=== PATIENT | male | born 1955 | race Caucasian/White ===

== ENCOUNTER 2019-11-21 12:33 | Outpatient (CLI) | payer MEDICARE, SELFPAY ==
--- NOTE | 2019-11-21 12:40 | ECHO_ITS ---
Patient Info Name: Nicolas Covington Age: 64 years : 1955 Gender: Male Ht: 65 in Wt: 135 lbs BSA: 1.68 m2 HR: 59 bpm BP: 144 / 92 mmHg Technical Quality: Good Exam Date: 11/21/2019 1:26 PM Exam Location: [facility] Patient Status: Outpatient Admit Date: 11/21/2019 Staff Ordering Physician: Vaelrio Jane DO [employer] Math Tutor: Matt Doshi, SUSIE, RT Attending Provider: Valerio Jane DO Referring Physician: Buck RIBEIRO; Exam Type: CA echo dop color flow w con Study Info Indications I50.9 - Heart failure, unspecified Complete two-dimensional, color flow and Doppler transthoracic echocardiogram is performed. Summary 1. Left ventricular systolic function is preserved, estimated at 50-55%. 2. Left ventricular chamber dimension is mildly enlarged. 3. The left ventricular diastolic function is grade I diastolic dysfunction. 4. E/e' 5 is not elevated. 5. Global longitudinal strain is mildly abnormal at -15.8%. 6. Right ventricular systolic function is mildly reduced with TAPSE 1.5 cm. 7. There is mild aortic valve sclerosis. 8. There is trace aortic valve regurgitation. 9. There is trace mitral valve regurgitation. 10. There is mild tricuspid valve regurgitation. 11. Dilated inferior vena cava with <50% collapse upon inspiration consistent with significantly elevated right atrial pressure, 15 mmHg. Left Ventricle E/e' 5 is not elevated. Global longitudinal strain is mildly abnormal at -15.8%. Left ventricular systolic function is preserved, estimated at 50-55%. Left ventricular chamber dimension is mildly enlarged. The left ventricular diastolic function is grade I diastolic dysfunction. Right Ventricle Right ventricular systolic function is mildly reduced with TAPSE 1.5 cm. Right ventricular chamber dimension is normal. Left Atria Left atrial chamber dimension is normal. Right Atria Right atrial chamber dimension is normal. Aortic Valve The aortic valve is trileaflet. There is mild aortic valve sclerosis. There is no aortic valve stenosis. There is trace aortic valve regurgitation. Pulmonic Valve There is no pulmonic regurgitation. Mitral Valve There is no mitral valve stenosis. There is trace mitral valve regurgitation. Tricuspid Valve There is mild tricuspid valve regurgitation. RVSP is not calcuated due to an inadequate TR jet. Pericardium/Pleural There is no pericardial effusion. Inferior Vena Cava Dilated inferior vena cava with <50% collapse upon inspiration consistent with significantly elevated right atrial pressure, 15 mmHg. Aorta The aortic root size at the sinus of Valsalva is normal. Left Ventricular Outflow Tract Name Value Normal LVOT 2D LVOT Diameter 2.02 cm LVOT Doppler LVOT Peak Gradient 3 mmHg LVOT Mean Gradient 1 mmHg LVOT VTI 16.98 cm LVOT VTI/AV VTI Ratio 0.81 LVOT Stroke Volume 54.12 ml LVOT CO 3.82 l/min LVOT CI 2.27 L/min/m2 Chung
== END 2019-11-21 12:34 | disposition home or self-care (01) ==
PROVIDERS: PCP Family Medicine; Visit Provider Internal Medicine Cardiovascular Disease
DX: I25.10 Atherosclerotic heart disease of native coronary artery without angina pectoris (principal); Z95.1 Presence of aortocoronary bypass graft; I36.1 Nonrheumatic tricuspid (valve) insufficiency; I35.1 Nonrheumatic aortic (valve) insufficiency
CPT/HCPCS: C8929

== ENCOUNTER 2021-03-31 11:02 | Outpatient (CLI) | payer OTHER, SELFPAY ==
--- NOTE | ~2021-03-31 | XR_ITS ---
EXAMINATION: XR ankle RT min 3V INDICATION: Right ankle pain TECHNIQUE: Four views of the right ankle are obtained. COMPARISON: None available FINDINGS: There is no fracture, dislocation, or subluxation. Mild osteoarthritis is noted in the midf oot. There is a posterior calcaneal enthesophyte. IMPRESSION: 1. No acute osseous abnormality. Reviewed, dictated and finalized at location B.
== END 2021-03-31 11:03 | disposition home or self-care (01) ==
PROVIDERS: PCP Family Medicine; Visit Provider Nurse Practitioner Family
DX: M25.571 Pain in right ankle and joints of right foot (principal)
CPT/HCPCS: 73610

== ENCOUNTER 2021-04-01 09:41 | Outpatient (CLI) | payer OTHER, SELFPAY ==
--- NOTE | ~2021-04-01 | NM_ITS ---
EXAMINATION: NM stress w perf spect multi DATE: 04/01/2021 12:46 INDICATION: This chronic coronary artery disease with coronary artery bypass grafting. TECHNIQUE: Rest images were obtained following intravenous administration of 10 mCi Tc99m tetrofosmin (Myoview). The patient performed an exercise activity. At peak exercise, 30.4 mCi Tc99m tetrofosmin (Myoview) was administered intravenously, and stress images were obtained. Data was reconstructed int o short axis and horizontal and vertical long axis SPECT images. Gated SPECT images were also obtaine d. COMPARISON: None. FINDINGS: There is normal left ventricular perfusion without definite evidence of reversible or fixed perfusion abnormality to suggest ischemia or infarction. There is normal left ventricular chamber size, wall motion and ejection fraction. Left ventricular ejection fraction measures >70%. IMPRESSION: 1. Normal myocardial perfusion at rest and during stress. 2. Left ventricular ejection fraction measuring >70%. Reviewed, dictated and finalized at location A.
--- NOTE | 2021-04-01 09:55 | EST_ITS ---
Patient Info Name: Nicolas Covington Age: 66 years : 1955 Gender: Male Ht: 66 in Wt: 144 lbs BSA: 1.75 m2 HR: 73 bpm BP: 156 / 82 mmHg Heart Rhythm: Sinus Rhythm Exam Date: 04/01/2021 10:59 AM Exam Location: [facility] Stress Patient Status: Outpatient Admit Date: 04/01/2021 Staff Ordering Physician: Valerio Jane DO Attending Provider: Valerio Jane DO Exercise Technologist: Evangelina Woodruff CT Exercise Physician: Valerio Jane DO Exam Type: CA stress test treadmill w NM Study Info Indications I25.811 - Atherosclerosis of [place] coronary artery of transplanted heart without angina pectoris A nuclear stress test was performed. Summary 1. 1. Negative Zachery exercise stress test for ischemic ST changes by ECG criteria. 2. 2. Good functional capacity, achieving 10 METs of workload. 3. 3. Baseline hypertension with hypertensive response to exercise. 4. 4. Appropriate HR response to exercise. 5. 5. Appropriate HR recovery at 1 minute post exercise. 6. 6. Nuclear scan to follow and will be reported separately. Please correlate with it. 7. 7. Patient informed of the above results. Protocol: Zachery Stress ECG Details Stage: REST Duration (min): 2 min : 12 sec Speed (mph): 0.0 Grade (%): 0 HR (bpm): 76 SBP (mmHg): 156 DBP (mmHg): 82 METS: --- Stage: REST Duration (min): 11 min : 47 sec Speed (mph): 0.0 Grade (%): 0 HR (bpm): 78 SBP (mmHg): 156 DBP (mmHg): 82 METS: --- Stage: STAGE 1 Duration (min): 1 min : 0 sec Speed (mph): 1.7 Grade (%): 10 HR (bpm): 93 SBP (mmHg): 156 DBP (mmHg): 82 METS: --- Stage: STAGE 1 Duration (min): 2 min : 0 sec Speed (mph): 1.7 Grade (%): 10 HR (bpm): 97 SBP (mmHg): 156 DBP (mmHg): 82 METS: --- Stage: STAGE 1 Duration (min): 3 min : 0 sec Speed (mph): 1.7 Grade (%): 10 HR (bpm): 104 SBP (mmHg): 168 DBP (mmHg): 94 METS: --- Stage: STAGE 2 Duration (min): 1 min : 0 sec Speed (mph): 2.5 Grade (%): 12 HR (bpm): 106 SBP (mmHg): 168 DBP (mmHg): 94 METS: --- Stage: STAGE 2 Duration (min): 2 min : 0 sec Speed (mph): 2.5 Grade (%): 12 HR (bpm): 113 SBP (mmHg): 172 DBP (mmHg): 76 METS: --- Stage: STAGE 2 Duration (min): 3 min : 0 sec Speed (mph): 2.5 Grade (%): 12 HR (bpm): 109 SBP (mmHg): 172 DBP (mmHg): 76 METS: --- Stage: STAGE 3 Duration (min): 1 min : 0 sec Speed (mph): 3.4 Grade (%): 14 HR (bpm): 121 SBP (mmHg): 93 DBP (mmHg): 35 METS: --- Stage: STAGE 3 Duration (min): 2 min : 0 sec Speed (mph): 3.4 Grade (%): 14 HR (bpm): 126 SBP (mmHg): 210 DBP (mmHg): 91 METS: --- Stage: STAGE 3 Duration (min): 2 min : 40 sec Speed (mph): 3.4 Grade (%): 14 HR (bpm): 125 SBP (mmHg): 210 DBP (mmHg): 91 METS: --- Stage: RECOVERY Duration (m
== END 2021-04-01 09:42 | disposition home or self-care (01) ==
LOC: ANHCARD 09:41
PROVIDERS: PCP Family Medicine; Visit Provider Internal Medicine Cardiovascular Disease
DX: I25.810 Atherosclerosis of coronary artery bypass graft(s) without angina pectoris (principal)
CPT/HCPCS: 78452; 93017; A9502

== ENCOUNTER 2021-08-02 00:04 | Day surgery (SDC) | payer OTHER, SELFPAY ==
[2021-05-31 13:54] VITALS: BMI 23.1
[2021-07-21 13:58] VITALS: BMI 23.5
--- NOTE | 2021-08-01 12:49 | P.PNAN_ITS ---
Anes - Eval Pre Procedure Procedure: Operation Date: 08/02/21 11:00 Proposed Procedures p Colonoscopy - Efrain Bartholomew MD Date/Time: 08/01/21 12:49 Pre Op Diagnosis: right LQP Patient Data Age: 66 Gender: M Height: 1.68 m Weight: 66 kg Allergies Allergy/AdvReac Type Severity Reaction Status Date / Time Sulfa (Sulfonamide Allergy Unknown hives Verified 07/21/21 14:03 Antibiotics) Home Medications Medication Instructions Recorded Confirmed Type aspirin 325 mg tablet,delayed 325 mg PO DAILY 06/11/19 05/31/21 History release atorvastatin 20 mg PO DAILY 07/21/21 07/21/21 History EC03/19/21 SR 71 Other studies: Excerpt from Dr. Jane office note dtd 03/19/21 provides summary of cardiovascular history: CARDIOVASCULAR PROCEDURESCATH LAB: Cath (Dr. Rea and Dr. Manrique at [facility]: Significant stenosis of RCA, LAD and OM; IFR of mid LAD was 0.77 that normalized to normal with pullback at 1.0.) - 04/16/2018 CV/SURGERY: CV Surgery ([facility]: CABG x 5 vessels: CACERES to LAD, Radial to OM1, SVG to Ramus, SVG sequential PDA to PL of RCA.) - 05/03/2018 ECHO/MUGA: 11/21/19 Echo: EF 50-55%, mild LVE, grade I diastolic dysfunction (E/e' 5), trace AI/MR, mild TR. Echo (EF 55-60%, grade II diastolic dysfunction, mild LAE, mild MR/TR, trace PI.) - 04/10/2018 ELECTROPHYSIOLOGY: EKG (Sinus rhythm, ST-T abnormality- consider inferior ischemia.) - 11/17/2017 STRESS TESTS: Exercise Tolerance Test (Negative for ischemia; exercised for 10 minutes.) - 11/21/2017 CT/MRI: Cardiac CTA ([facility]: Severe mid RCA stenosis, mild distal RCA plaque; LAD with mod plaque; mild plaques in distal LAD and LCx.) - 03/23/2018 Patient hx anesthesia problems: none Family hx anesthesia problems: none Results Review: All pre-operative results and documents have been reviewed as part of the pre-operative evaluation. [facility] Past Medical History Medical History (Updated 08/01/21 @ 13:00 by Mariam Hale CRNA) BPH (benign prostatic hyperplasia) Elevated PSA HTN (hypertension) Osteoarthritis Tobacco abuse Surgical History [facility] Family History Family History Sibling Hypertension Social History Social History (Updated 08/01/21 @ 12:56 by Mariam Hale CRNA) Smoking status: Former smoker Second hand tobacco smoke exposure: No Alcohol intake: current Drinks per week: 7 Substance use: never Substance use type: does not use Living arrangements: alone Gender identity (if verbalized by the patient): Male Spiritual care concerns: No Exam Day of Procedure 08/01/21 12:49
[2021-08-02 10:07] VITALS: BP 152/93; PULSE 79; RESP 18; TEMP 36.3; O2SAT 97; BMI 23.7
[2021-08-02] MEDS: LACTATED RINGERS 1,000 ML 150 ML IV CONT (10:23)
--- NOTE | 2021-08-02 10:33 | WPDANESEFPP ---
Anes - Eval Final PreProcedure Day of Procedure 08/02/21 10:33 Patient weight: normal Heart: regular rate and rhythm Lungs: clear to auscultation and normal air movement Airway: Mallampati scale class II Neurological: alert and oriented Last oral intake: >/= 8 hours ASA classification: III Emergent: no Anesthetic plan: proceed Anesthesia type and monitoring: general GIVS and standard monitoring Results Review: All pre-operative results and documents have been reviewed as part of the pre-operative evaluation. Informed Consent: The patient's anesthetic plan and its attendant risks and benefits were discussed with the patient/family/POA. Questions were solicited and answers provided to the satisfaction of the patient/family/POA.
--- NOTE | 2021-08-02 10:48 | PM.HPGS ---
History of Present Illness History of Present Illness Consent: Risks, benefits, and alternatives have been discussed and questions answered. Patient agrees to proceed with procedure. Chief complaint: right LQP Narrative: Nicolas Covington is a 66 year old male with intermittent pain in rlq for years, last colonoscopy 2012. Review of Systems Constitutional: Constitutional: Denies headache(s) and Denies weakness Eyes: Eyes: Denies blurry vision ENT: Reports Normal hearing present, Denies headache(s) and Denies neck pain Cardiovascular: Cardiovascular: Denies chest pain and Denies dyspnea Respiratory: Respiratory: Denies dyspnea Gastrointestinal: Gastrointestinal: Reports no additional gastrointestinal complaints Genitourinary: Genitourinary: Denies dysuria Musculoskeletal: Musculoskeletal: Denies neck pain Integumentary/Breasts: Skin/Breast: Denies dry skin Neurologic: Reports Normal hearing present, Denies headache(s) and Denies weakness Psychiatric: Psychiatric: Denies anxiety Endocrine: Endocrine: Denies change in body appearance Hematologic/Lymphatic: Hematologic/Lymphatic: Denies easy bleeding Allergic/Immunologic: Allergic/Immunologic: Denies urticaria PMFSH Past Medical History Medical History (Updated 08/01/21 @ 13:00 by Mariam Hale CRNA) BPH (benign prostatic hyperplasia) Elevated PSA HTN (hypertension) Osteoarthritis Tobacco abuse Surgical History Surgical History History of heart bypass surgery [place] [employer]: 5 vessel 2018 Family History Family History Sibling Hypertension Social History Social History (Updated 08/01/21 @ 12:56 by Mariam Hale CRNA) Smoking status: Former smoker Second hand tobacco smoke exposure: No Alcohol intake: current Drinks per week: 7 Substance use: never Substance use type: does not use Living arrangements: alone Gender identity (if verbalized by the patient): Male Spiritual care concerns: No Meds Home Medications and Allergies Home Medications Medication Instructions Recorded Confirmed Type aspirin 325 mg tablet,delayed 325 mg PO DAILY 06/11/19 08/02/21 History release atorvastatin 20 mg PO DAILY 07/21/21 08/02/21 History Allergies Allergy/AdvReac Type Severity Reaction Status Date / Time Sulfa (Sulfonamide Allergy Unknown hives Verified 08/02/21 10:06 Antibiotics) Vital Signs Vital Signs - 24 hr 08/02/21 10:07 Temperature 97.4 F L Pulse Rate 79 Respiratory Rate 18 Blood Pressure 152/93 H Pulse Oximetry 97 Exam Const: General: comfortable and no acute distress HENMT: General nose exam: Normal nares present Eyes: General: appearance normal, both eyes and all related structures Neck: Neck: no JVD Resp: Auscultation: clear to auscultation bilaterally Cardio: Rate: regular rate Rhythm: regular rhythm GI: Inspection: non-distended GI Palp: Yes Soft to palpation Skin: General skin exam: normal color Neuro: General: gait normal Speech: normal speech Extrem: General: normal to inspection Psych: Mental Status: mental status grossly normal Assessment and Plan Assessment and plan (1) Right lower quadrant pain: Code(s): R10.31 - Right lower quadrant pain Status: Acute Assessment and Plan: will assess with colonoscopy
[2021-08-02 11:14] VITALS: BP 115/77; PULSE 68; RESP 24; O2SAT 100
[2021-08-02 11:24] VITALS: BP 109/73; PULSE 64; RESP 16; O2SAT 98
[2021-08-02 11:34] VITALS: BP 116/76; PULSE 65; RESP 14; O2SAT 100
== END 2021-08-02 11:41 | disposition home or self-care (01) ==
PROVIDERS: PCP Family Medicine; Visit Provider Internal Medicine Gastroenterology
PROC: 0DJD8ZZ Inspection of Lower Intestinal Tract, Via Natural or Artificial Opening Endoscopic (ICD-10-PCS; CPT 45378; principal; 2021-08-02 11:00)
DX: Z12.11 Encounter for screening for malignant neoplasm of colon (principal); K63.5 Polyp of colon; R10.31 Right lower quadrant pain; K64.8 Other hemorrhoids; N40.0 Benign prostatic hyperplasia without lower urinary tract symptoms; I10 Essential (primary) hypertension; M19.90 Unspecified osteoarthritis, unspecified site; R97.20 Elevated prostate specific antigen [PSA]; Z95.1 Presence of aortocoronary bypass graft; Z87.891 Personal history of nicotine dependence; Z79.82 Long term (current) use of aspirin; I25.10 Atherosclerotic heart disease of native coronary artery without angina pectoris
CPT/HCPCS: 45385; 88305; J2704; J7120

== ENCOUNTER 2021-10-14 07:59 | Outpatient (CLI) | payer OTHER, SELFPAY ==
--- NOTE | ~2021-10-14 | XR_ITS ---
XR foot LT min 3V 10/14/2021 08:36 Indication: Left foot pain Procedure: 4 views left foot Comparison: No prior studies for comparison. Findings: There is osteoarthritis of the first MTP joint and tarsal metatarsal joints. No fracture or traumatic malalignment. Lisfranc joint is intact. No erosive changes. There is anatomic alignment. T here are degenerative calcaneal enthesophytes. No focal soft tissue abnormality. No foreign bodies. Impression: 1: Moderate osteoarthritis of the first digit. Reviewed, dictated and finalized at location B. Impression: 1: Moderate osteoarthritis of the first digit.
--- NOTE | ~2021-10-14 | XR_ITS ---
XR pelvis 1-2V 10/14/2021 08:36 Indication: Arthralgia. Pelvic pain. Procedure: AP view of the pelvis Comparison: No prior studies for comparison. Findings: There is lower lumbar spondylosis. Pelvic rings are intact. Sacral foramen are symmetric. N o fracture or traumatic malalignment. No significant soft tissue abnormality. Impression: 1: No acute bone or joint abnormality. Reviewed, dictated and finalized at location B. Impression: 1: No acute bone or joint abnormality.
--- NOTE | ~2021-10-14 | XR_ITS ---
EXAMINATION: XR hand RT 2V INDICATION: Arthralgia TECHNIQUE: Two views of the right hand are obtained. COMPARISON: 11/28/2011 FINDINGS: There is advanced osteoarthritis of the first carpometacarpal joint, [facility] There is also worsening osteoarthritis at the metacarpophalangeal joints and int erphalangeal joints. The soft tissues are unremarkable. There is no fracture. IMPRESSION: 1. Polyarticular osteoarthritis with interval worsening. Reviewed, dictated and finalized at location A.
--- NOTE | ~2021-10-14 | XR_ITS ---
EXAMINATION: XR hand LT 2V INDICATION: Left hand pain TECHNIQUE: Two views of the left hand are obtained. COMPARISON: None available FINDINGS: There is advanced osteoarthritis at the triscaphe joint and the second and third metacarpop halangeal joints. There is moderate osteoarthritis of the interphalangeal joints and at the first car pometacarpal joint. No fracture is identified. There are surgical clips projecting lateral to the dis lance radius. IMPRESSION: 1. Polyarticular osteoarthritis, worst at the triscaphe joint and at the second and third metacarpoph alangeal joints. Reviewed, dictated and finalized at location A. IMPRESSION: 1. Polyarticular osteoarthritis, worst at the triscaphe joint and at the second and third metacarpophalangeal joints.
--- NOTE | ~2021-10-14 | XR_ITS ---
EXAMINATION: XR foot RT min 3V DATE: 10/14/2021 08:36 INDICATION: Arthralgia TECHNIQUE: Dorsoplantar, lateral, and 2 oblique views of the right foot were obtained. COMPARISON: 03/31/2021 FINDINGS: There is no fracture. There is moderate osteoarthritis at the first metatarsophalangeal maycol nt. Mild osteoarthritis is noted in multiple interphalangeal joints. A surgical clip is noted in the soft tissues near the distal tibia. A posterior calcaneal enthesophyte is noted. IMPRESSION: 1. Polyarticular osteoarthritis, worst at the first metatarsophalangeal joint. Reviewed, dictated and finalized at location A.
== END 2021-10-14 08:00 | disposition home or self-care (01) ==
PROVIDERS: PCP Family Medicine; Visit Provider Physician Assistant
DX: M19.041 Primary osteoarthritis, right hand (principal); M47.816 Spondylosis without myelopathy or radiculopathy, lumbar region; M19.072 Primary osteoarthritis, left ankle and foot; M19.071 Primary osteoarthritis, right ankle and foot; M18.0 Bilateral primary osteoarthritis of first carpometacarpal joints; M19.042 Primary osteoarthritis, left hand
CPT/HCPCS: 72170; 73120; 73630

== ENCOUNTER 2022-07-04 14:05 | Outpatient (CLI) | payer OTHER, SELFPAY ==
[2022-07-04 15:48] LABS: Troponin I < 0.012 ng/mL (0.000-0.034)
== END 2022-07-04 14:06 | disposition home or self-care (01) ==
LOC: ANHLAB 14:07
PROVIDERS: PCP Family Medicine; Visit Provider Internal Medicine Cardiovascular Disease
DX: R07.9 Chest pain, unspecified (principal)
CPT/HCPCS: 36415; 84484

== ENCOUNTER 2022-07-13 12:21 | Outpatient (CLI) | payer OTHER, SELFPAY ==
--- NOTE | 2022-07-13 12:44 | ECHO_ITS ---
Patient Info Name: Nicolas Covington Age: 67 years : 1955 Gender: Male Ht: 66 in Wt: 145 lbs BSA: 1.76 m2 HR: 65 bpm Technical Quality: Good Exam Date: 07/13/2022 1:07 PM Exam Location: [facility] Patient Status: Outpatient Admit Date: 07/13/2022 Staff Ordering Physician: Valerio Jane DO Rn Field Case Manager: Matt Doshi RDCS, RT Attending Provider: Valerio Jane DO Referring Physician: Buck RIBEIRO; Exam Type: CA echo doppler color flow Study Info Indications R07.9 - Chest pain, unspecified Complete two-dimensional, color flow and Doppler transthoracic echocardiogram is performed. Strain analysis performed. Summary 1. Complete two-dimensional, color flow and Doppler transthoracic echocardiogram is performed. 2. Left ventricular chamber dimension is normal. 3. Left ventricular systolic function is normal, estimated at 55-60%. 4. The left ventricular diastolic function is normal. 5. E/e' 8 is minimally elevated. 6. Global longitudinal strain is normal at -18.6%. 7. Right ventricular chamber dimension is mildly enlarged. 8. Right ventricular systolic function is mildly reduced and with abnormal TAPSE 1.6 cm. 9. There is mild aortic valve sclerosis. 10. There is trace aortic valve regurgitation. 11. There is trace mitral valve regurgitation. 12. There is mild tricuspid valve regurgitation. 13. No pulmonary hypertension, estimated pulmonary arterial systolic pressure is 27 mmHg. 14. Dilated inferior vena cava with >50% collapse upon inspiration consistent with elevated right atrial pressure, 10 mmHg. Left Ventricle E/e' 8 is minimally elevated. Global longitudinal strain is normal at -18.6%. Left ventricular chamber dimension is normal. Left ventricular systolic function is normal, estimated at 55-60%. The left ventricular diastolic function is normal. Right Ventricle Right ventricular systolic function is mildly reduced and with abnormal TAPSE 1.6 cm. Right ventricular chamber dimension is mildly enlarged. Left Atria Left atrial chamber dimension is normal. Right Atria Right atrial chamber dimension is normal. Aortic Valve The aortic valve is trileaflet. There is mild aortic valve sclerosis. There is no aortic valve stenosis. There is trace aortic valve regurgitation. Pulmonic Valve There is no pulmonic regurgitation. Mitral Valve There is no mitral valve stenosis. There is trace mitral valve regurgitation. Tricuspid Valve There is mild tricuspid valve regurgitation. No pulmonary hypertension, estimated pulmonary arterial systolic pressure is 27 mmHg. Pericardium/Pleural There is no pericardial effusion. Inferior Vena Cava Dilated inferior vena cava with >50% collapse upon inspiration consistent with elevated right atrial pressure, 10 mmHg. Aorta The aortic root size at the sinus of Valsalva is normal. Left Ventricular Outflow Tract Name Value Normal LVOT 2D LVOT Diameter 2.0 cm LVOT Doppler LVOT Peak Gradient 2 mmHg LVOT Mean Gradient 1 mmHg LVOT VTI 15 cm L
== END 2022-07-13 12:22 | disposition home or self-care (01) ==
PROVIDERS: PCP Family Medicine; Visit Provider Internal Medicine Cardiovascular Disease
DX: R07.9 Chest pain, unspecified (principal); I36.1 Nonrheumatic tricuspid (valve) insufficiency
CPT/HCPCS: 93306

== ENCOUNTER 2022-07-20 12:35 | Outpatient (CLI) | payer OTHER, SELFPAY ==
--- NOTE | ~2022-07-20 | CT_ITS ---
Clinical Indication: Chest pain CT Scan of the Chest with Contrast: Technique: Contiguous sections were acquired throughout the chest after intravenous administration of 100 cc of Omnipaque 350. Dose reduction technique was used on this scan by utilizing automated expos ure control and iterative reconstruction technique. The dose-length product (DLP) was 307.38 mGy-cm. Findings: There is no evidence of any significant mediastinal, hilar or axillary lymphadenopathy. There is no f illing defect in the pulmonary arterial tree to suggest pulmonary embolus. There is no evidence of ao rtic dissection or aneurysm. Patient is status post prior CABG. There is no evidence of pleural or pericardial effusion. The lungs are clear. No pulmonary nodules or infiltrates are noted. Images through the upper abdomen reveal no abnormalities. Impression: No evidence of pulmonary embolus, aortic dissection, or aortic aneurysm. Clear lungs. Status post presumed CABG. Reviewed, dictated and finalized at [facility]. K CASHIER Impression: No evidence of pulmonary embolus, aortic dissection, or aortic aneurysm. Clear lungs. Status post presumed CABG.
[2022-07-20 13:21] LABS: Estimated Glomerular Filt Rate > 60
== END 2022-07-20 12:36 | disposition home or self-care (01) ==
LOC: ANHIMG 12:37
PROVIDERS: PCP Family Medicine; Visit Provider Internal Medicine Cardiovascular Disease
DX: R07.9 Chest pain, unspecified (principal)
CPT/HCPCS: 71275; Q9967

== ENCOUNTER 2023-02-21 08:15 | Outpatient (CLI) | payer OTHER, SELFPAY ==
--- NOTE | 2023-02-22 14:43 | WPDSLEEPSTUD ---
Sleep Study Date of Study: 02/21/23 Ordering Provider: Valerio Jane DO Interpreting Physician: Jesenia Reilly MD Sleep Study Type: Polysomnogram Height: 1.68 m Weight: 65.771 kg Body Mass Index: 23.3 Neck Circumference (inches): 14.25 [place]: 11 Reason for Sleep Study Waking at night twice for nocturia, excessive daytime sleepiness requiring a nap Sleep History Nicolas Covington is a 68-year-old man with excessive daytime sleepiness. He had COVID April 2022. Since his CABG surgery in 2018, his energy level has not been the same, now taking naps in the day. He rarely awakens from sleep short of breath. He rarely at night with heartburn, belching or cough.??He frequently snores, occasionally snores loudly enough that others complain. He frequently has trouble sleeping when he has a cold. He rarely wakes up gasping for breath during the night. He occasionally has breathing problems at night. He rarely sweats excessively at night. He rarely notices his heart pounding or beating irregularly during the night. He frequently falls asleep during the day. He frequently falls asleep involuntarily, rarely falls asleep while driving. He never experiences loss of muscle tone with strong emotion. He rarely feels paralyzed on waking or falling asleep. He never experiences vivid dreams upon waking or falling asleep. He never feels afraid of going to sleep. He rarely has nightmares. He rarely recalls his dreams. He frequently has thoughts racing through his mind. He rarely feels sad or depressed. He constantly feels anxiety. He constantly notices muscular tension, never notices parts of his body jerk. He never kicks during the night. He never feels crawling or aching feelings in his legs. He never feels leg pain at night. He occasionally grinds his teeth, never has morning jaw pain. He constantly feels bothered by pain during the day, occasionally awakened by pain during the night. He constantly wakes up feeling stiff in the morning, rarely wakes feeling sore or achy in the morning. He constantly awakens with pain in his neck, spine, or joints. he has fatigue, memory problems and concentration difficulties. Normal bedtime is Twelve midnight, usually falling asleep within a 1/2 hour. He typically wakes 3 times during the night to urinate. He wakes the morning at 7:30 a.m.. His weekend schedule is the same. He estimates getting 6 hours of sleep at night. He takes naps in the afternoon or evening. A short nap lasting 10-15 minutes is not refreshing. He is usually drowsy for 2 hours after waking. Feels better in the afternoon compared to other times of day. Habits:??Tobacco: Former smoker Caffeine: 1 serving per day. Alcohol: 3 beverages twice a week Recreational substances: none PMFSH Past Medical History Medical History BPH (benign prostatic hyperplasia) Elevated PSA HTN (hypertension) Osteoarthritis Tobacco abuse Surgical History Surgical History History of heart bypass surgery [place] [employer]: 5 vessel 2018 Family History Family History Sibling Hypertension Social History Social History Social History: Caffeine-occasional Smoking status: Former smoker Second hand tobacco smoke exposure: No Alcohol intake: current Drinks per week: 7 Substance use: never Substance use type: does not use Lack of Transportation: No Lack of Food: Never True Current Housing: I Have Housing Concerned About Future Housing: No Difficulty Paying Gas/Electric Bills: No Difficulty Paying for Meds: No Currently Unemployed: No Education: Associate Degree Difficulty w/ Childcare or Family Care: No Living arrangements: alone Occupation/Education: retired Gender identity (if verbalized by t
[2023-02-22 14:49] VITALS: BMI 23.3
== END 2023-02-22 07:19 | disposition home or self-care (01) ==
PROVIDERS: PCP Family Medicine; Visit Provider Internal Medicine Cardiovascular Disease
DX: G47.33 Obstructive sleep apnea (adult) (pediatric) (principal); G47.10 Hypersomnia, unspecified
CPT/HCPCS: 95810

== ENCOUNTER 2023-05-01 08:46 | Outpatient (CLI) | payer OTHER, SELFPAY ==
[2023-05-23 15:06] VITALS: BMI 23.3
--- NOTE | 2023-05-23 15:06 | WPDSLEEPSTUD ---
Sleep Study Date of Study: 05/01/23 Ordering Provider: Humberto Borrego APRN Interpreting Physician: Chio Whatley, Sleep Study Type: BiPAP Titration Height: 1.68 m Weight: 65.771 kg Body Mass Index: 23.3 Neck Circumference (inches): 15 [place]: 11 Reason for Sleep Study The patient had a basic nocturnal polysomnogram on 02/21/2023 that showed mild obstructive sleep apnea, the apnea-hypopnea index is 8.5 with desaturation 89%. He had an increased number of central events so it was recommended that he have a PAP Titration. Sleep History Nicolas Covington is a 68-year-old man with? excessive daytime sleepiness.? He had COVID April 2022.? Since his CABG surgery in 2018, his energy level has not been the same, now taking naps in the day.? He rarely awakens from sleep short of breath. He? rarely at night with heartburn, belching or cough.??He? frequently snores,? occasionally snores loudly enough that others complain. He? frequently has trouble sleeping when he has a cold. He? rarely wakes up gasping for breath during the night. He? occasionally has breathing problems at night. He rarely sweats excessively at night. He rarely notices his heart pounding or beating irregularly during the night. He frequently falls asleep during the day. He frequently falls asleep involuntarily, rarely falls asleep while driving. He never experiences loss of muscle tone with strong emotion. He rarely feels paralyzed on waking or falling asleep. He never experiences vivid dreams upon waking or falling asleep. He never feels afraid of going to sleep. He rarely has nightmares. He rarely recalls his dreams. He frequently has thoughts racing through his mind. He rarely feels sad or depressed. He constantly feels anxiety. He constantly notices muscular tension, never notices parts of his body jerk. He never kicks during the night. He never feels crawling or aching feelings in his legs. He never feels leg pain at night. He occasionally grinds his teeth, never has morning jaw pain. He constantly feels bothered by pain during the day, occasionally awakened by pain during the night. He constantly wakes up feeling stiff in the morning, rarely wakes feeling sore or achy in the morning. He constantly awakens with pain in his neck, spine, or joints.? he has fatigue, memory problems and concentration difficulties. Normal bedtime is? Twelve midnight, usually falling asleep? within a 1/2 hour.? He typically wakes 3 times during the night to urinate.? He wakes the morning at 7:30 a.m..? His weekend schedule is the same.? He estimates getting 6 hours of sleep at night. ? He takes naps in the afternoon or evening.? A short nap lasting 10-15 minutes is not refreshing.? He is usually drowsy for 2 hours after waking.? Feels better in the afternoon compared to other times of day. Habits:??Tobacco: ? Former smoker? ? ? Caffeine: 1 serving per day. ? Alcohol: 3 beverages twice a week ? ? Recreational substances: none PMFSH Past Medical History Medical History BPH (benign prostatic hyperplasia) Elevated PSA HTN (hypertension) Osteoarthritis Tobacco abuse Surgical History Surgical History History of heart bypass surgery [place] [employer]: 5 vessel 2018 Family History Family History Sibling Hypertension Social History Social History Social History: Caffeine-occasional Smoking status: Never smoker Second hand tobacco smoke exposure: No Alcohol intake: current Drinks per week: 7 Substance use: never Substance use type: does not use Lack of Transportation: No Lack of Food: Never True Current Housing: I Have Housing Concerned About Future Housing: No Difficulty Paying Gas/Electric Bills: No Difficulty Paying for Meds: No Currently U
== END 2023-05-02 06:45 | disposition home or self-care (01) ==
LOC: ANHCSM 08:47
PROVIDERS: PCP Family Medicine; Visit Provider Nurse Practitioner Family
DX: G47.33 Obstructive sleep apnea (adult) (pediatric) (principal)
CPT/HCPCS: 95811

== ENCOUNTER 2023-06-23 11:24 | Outpatient (CLI) | payer OTHER, SELFPAY ==
--- NOTE | ~2023-06-23 | XR_ITS ---
Left foot Technique: AP, oblique, and lateral views were obtained. Clinical History: Rheumatoid arthritis Findings: No acute fracture or dislocation is seen. There is moderate degenerative change of the firs t metatarsophalangeal joint. Remaining joint spaces are intact.. Soft tissues are unremarkable. Impression: Moderate degenerative change of the first MTP joint. Reviewed, dictated and finalized at location . W MACHINE SET UP OPERATOR TOOL Impression: Moderate degenerative change of the first MTP joint.
--- NOTE | ~2023-06-23 | XR_ITS ---
Left Hand Technique: PA and lateral views were obtained. Clinical History: Arthritis Findings: No acute fracture or dislocation is seen. There is advanced osteoarthritis of the first CMC joint. There is moderate osteoarthritis of the second DIP joint. There is mild to moderate osteoarth ritis of the second and third MCP joints. Soft tissues are unremarkable. Impression: Osteoarthritic changes, as above. Reviewed, dictated and finalized at location M. R PROCESSING MACHINE HELPER Impression: Osteoarthritic changes, as above.
--- NOTE | ~2023-06-23 | XR_ITS ---
Right Hand Technique: PA and lateral views were obtained. Clinical History: Rheumatoid arthritis Findings: No acute fracture or dislocation is seen. There is advanced osteoarthritis of the first CMC joint. There is moderate osteoarthritis of the second DIP joint. There is mild osteoarthritis of the second and third MCP joints. Soft tissues are unremarkable. Impression: Osteoarthritic changes, as detailed above. Reviewed, dictated and finalized at location . CTOR GLOBAL Impression: Osteoarthritic changes, as detailed above.
--- NOTE | ~2023-06-23 | XR_ITS ---
Right foot Technique: AP, oblique, and lateral views were obtained. Clinical History: Rheumatoid arthritis Findings: No acute fracture or dislocation is seen. There is advanced osteoarthritis of the first met atarsophalangeal joint. Remaining joint spaces are preserved. Soft tissues are unremarkable. Impression: Advanced osteoarthritis of the first metatarsophalangeal joint Reviewed, dictated and finalized at location . NG MACHINE OPERATOR Impression: Advanced osteoarthritis of the first metatarsophalangeal joint
== END 2023-06-23 11:25 | disposition home or self-care (01) ==
LOC: ANHIMG 11:29
PROVIDERS: PCP Family Medicine; Visit Provider Physician Assistant
DX: M05.79 Rheumatoid arthritis with rheumatoid factor of multiple sites without organ or systems involvement (principal); M19.041 Primary osteoarthritis, right hand; M19.042 Primary osteoarthritis, left hand; M19.071 Primary osteoarthritis, right ankle and foot; M19.072 Primary osteoarthritis, left ankle and foot
CPT/HCPCS: 73120; 73630

== ENCOUNTER 2024-01-01 17:09 | Emergency (ER) | payer OTHER, SELFPAY ==
[2024-01-01] VITALS (11 sets, daily range): BP systolic 126–148; BP diastolic 75–87; PULSE 66–84; RESP 12–20; TEMP 36.7–37; O2SAT 96–99
--- NOTE | ~2024-01-01 | XR_ITS ---
EXAMINATION: XR chest 2V Exam Date/Time: 01/01/2024 17:35 CDT HISTORY: CHEST PAIN,sob x today, HX CABG, quintuple bypass x5 yrs ago Comparison: 12/29/2011. RESULT: Lines, tubes, and devices: Intact sternotomy wires. Mediastinal surgical clips. Lungs and pleura: Clear. Cardiomediastinal silhouette: Stable. Other: No acute osseous or upper abdominal finding. IMPRESSION: No acute cardiopulmonary process. Reviewed, dictated and finalized at location K.
--- NOTE | ~2024-01-01 | CT_ITS ---
EXAMINATION: CTA chest DATE: 01/01/2024 21:30 INDICATION: Chest pain, back pain TECHNIQUE: Computed tomography (CT) of the chest was performed with 100 mL Omnipaque-350 intravenous contrast in the arterial phase. Automated exposure control and iterative reconstruction technique wer e employed. The dose-length product was 254.33 mGy-cm. COMPARISON: X-ray chest, same date; [facility]PA 07/20/2022. FINDINGS: CHEST: Thoracic aorta: No significant dilation. No dissection. Mild atherosclerotic calcification. Lung parenchyma and airways: Mild dependent atelectasis. Lungs and airways are otherwise clear. Thoracic inlet, axillae and chest wall: No thyroid or soft tissue mass. No axillary lymphadenopathy. Mediastinum: No mass or lymphadenopathy. Heart and pericardium: Normal heart size. No pericardial effusion. Coronary artery calcifications: Mild. Pleura: No effusion or mass. Upper abdomen: Moderate distal esophageal and gastric wall edema. Thoracic bones: No acute osseous finding in the chest. IMPRESSION: No acute thoracic process detected. Moderate esophagitis/gastritis. Reviewed, dictated and finalized at location K.
--- NOTE | 2024-01-01 17:13 | ECG_ITS ---
Test Date: 2024-01-01 17:17:53 Measurements Intervals [place] Rate: 84 P: 47 IN: 146 QRS: -3 QRSD: 85 T: 15 QT: 381 QTc: 451 Interpretive Statements SINUS RHYTHM WITHIN NORMAL LIMITS No previous ECG available for comparison Electronically Signed On 01-01-2024 17:22:35 CDT by Candido Calderon M.D.
--- NOTE | 2024-01-01 17:40 | ED.CHESTPAIN ---
HPI - Chest Pain General Chief Complaint: Chest Pain <MAG Harper Last Filed: 01/01/24 17:52> Stated Complaint: CHEST PAIN TD <MAG Harper Last Filed: 01/01/24 17:52> Time Seen by Provider: 01/01/24 17:40 <MAG Harper Last Filed: 01/01/24 17:52> Focused HPI: Patient is a 68 y/o male, with PMH of RA, CAD s/p 5-vessel CABG in Apr 2018, who presents to the ED with c/o CP. Patient reports he developed midsternal CP a few hours ago today while he was sitting at home. Pain radiates straight through to the back and under his L shoulder blade. Pain has been constant since the onset but waxing and waning in intensity. Denies aggravating or alleviating factors. Denies significant aggravation with exertion. Has had some lightheadedness and diaphoresis with the pain. Denies SOB. Patient had COVID-19 3 weeks ago[address] Patient sees Dr. Jane with Cardiology. Patient recently stopped his methotrexate for his RA and is on a new injection medication, which he believes is Humira. GENERAL: Well-appearing, well-nourished, and in no acute distress. HEAD: Normocephalic, atraumatic. CHEST: Clear to auscultation. ?No respiratory distress. HEART: Regular rate and rhythm.? NEURO: ?Alert and oriented x3. Patient screened in triage and initial orders placed.? ?Additional care and disposition to be based upon?diagnostic testing and treatment. <MAG Harper Last Filed: 01/01/24 17:52> Source: patient <MAG Harper Last Filed: 01/01/24 17:52> Mode of arrival: ambulatory <MAG Harper Last Filed: 01/01/24 17:52> Limitations: no limitations <MAG Harper Last Filed: 01/01/24 17:52> History of Present Illness HPI narrative: 68-year-old male with PMH of significant CAD, follows with Dr. Jane and presenting today for chest pain beginning around 1400. Refer the previous HPI for further details. Patient is explained to me that he has midsternal /back pain. States that this seems to start in the back and radiates somewhat to the chest. He was just sitting around when the pain came on. Does not seem to be specifically worsened with exertion. He states certain movements and positions will make the pain worse. States that he has had a couple episodes in the past few weeks of this kind of pain but usually goes when on its own. <Mahesh Santos PA-C - Last Filed: 01/02/24 02:42> Related Data Home Medications: Home Medications Medication Instructions Recorded Confirmed aspirin 325 mg tablet,delayed 325 mg PO DAILY 06/11/19 11/22/23 release (Aspir-Binta) folic acid 400 mcg tablet 0.4 mg PO DAILY 08/09/23 11/22/23 methotrexate (PF) 15 mg/0.3 mL 15 mg subcut WEEKLY 08/09/23 11/22/23 subcutaneous auto-injector <Sue Barger PA-C - Last Filed: 01/01/24 17:52> Allergies/Adverse Reactions: Allergies Allergy/AdvReac Type Severity Reaction Status Date / Time Sulfa (Sulfonamide Allergy Unknown hives Verified 11/22/23 13:47 Antibiotics) <MAG Harper Last Filed: 01/01/24 17:52> Review of Systems Review of Systems: All systems as dictated in HPI <MAG Calloway Last Filed: 01/02/24 02:42> [facility] Past Medical History Medical History: Medical History BPH (benign prostatic hyperplasia) Elevated PSA HTN (hypertension) Osteoarthritis Tobacco abuse <MAG Harper Last Filed: 01/01/24 17:52> Surgical History Surgical History: Surgical History History of heart bypass surgery [place] [employer]: 5 vessel 2017 <MAG Harper Last Filed: 01/01/24 17:52> Family History Family History: Family History Sibling Hypertension <Sue Barger PA-C
[2024-01-01 17:55] LABS: Basophils Percent Auto 0.6 % (0.2-1.2); Eosinophils Absolute Auto 0.1 K/mm3 (0-0.3); Eosinophils Percent Auto 1.3 % (0-4.4); Hematocrit 44.1 % (42.0-52.0); Hemoglobin 14.8 g/dL (14.0-18.0); Immature Granulocyte Absolute 0.02 K/mm3 (0.00-0.031); Immature Granulocyte Percent A 0.3 % (0-0.5); Lymphocytes Absolute Auto 0.98 K/mm3 (0.9-3.2); Lymphocytes Percent Auto 15.9 % (18.3-44.2); Mean Corpuscular HGB Conc 33.6 g/dl (32-36); Mean Corpuscular Hemoglobin 30.9 pg (26-34); Mean Corpuscular Volume 92.1 fl (80-100); Mean Platelet Volume 12.1 fl (7.4-10.4); Monocytes Absolute Auto 0.4 K/mm3 (0.1-0.6); Neutrophils Absolute Auto 4.6 K/mm3 (1.3-6.7); Neutrophils Percent Auto 74.9 % (45.5-73.1); Platelet Count Result 176 k/mm3 (150-375); Red Blood Count 4.79 M/mm3 (4.6-6.20); Red Cell Distribution Width 14.9 % (11.5-14.5); White Blood Count 6.2 K/mm3 (4.5-10.0)
[2024-01-01 18:07] LABS: Alanine Aminotransferase 26 U/L (6-50); Albumin Level 4.4 g/dL (3.5-5.1); Alkaline Phosphatase 90 U/L (38-126); Anion Gap 11 mmol/L (4-12); Aspartate Amino Transferase 27 U/L (17-59); Bilirubin,Total 0.7 mg/dL (0.2-1.3); Blood Urea Nitrogen 25 mg/dL (9-20); Calcium 9.3 mg/dL (8.4-10.2); Carbon Dioxide 23 mmol/L (22-30); Chloride 106 mmol/L (98-107); Estimated CRCL calculation 56 ml/min; Estimated Glomerular Filt Rate > 60; Glucose 89 mg/dL (65-110); Lipase 52 U/L (23-300); Potassium 4.1 mmol/L (3.4-5.0); Sodium 140 mmol/L (137-145)
[2024-01-01 18:17] LABS: Troponin I < 0.012 ng/mL (0.000-0.034)
[2024-01-01 18:23] LABS: Prothrombin Time 13.2 Seconds (11.1-14.7)
[2024-01-01 18:24] LABS: Partial Thromboplastin Time 27.1 Seconds (22.3-36.8)
[2024-01-01 18:51] LABS: D Dimer 0.31 ug/mL (<0.48)
[2024-01-01 20:35] LABS: Troponin I < 0.012 ng/mL (0.000-0.034)
--- NOTE | 2024-01-01 20:55 | PC.NURSE ---
Pt refusing meds at this time. Will update RN.
== END 2024-01-01 22:50 | disposition home or self-care (01) ==
PROVIDERS: Emergency Medicine; Emergency Provider Physician Assistant; PCP Family Medicine
DX: R07.9 Chest pain, unspecified (principal); M54.9 Dorsalgia, unspecified; I10 Essential (primary) hypertension; M19.90 Unspecified osteoarthritis, unspecified site; N40.0 Benign prostatic hyperplasia without lower urinary tract symptoms
CPT/HCPCS: 36415; 71046; 71275; 80053; 83690; 84484; 85025; 85380; 85610; 85730; 93005; 99284; Q9967

== ENCOUNTER 2024-02-08 09:20 | Outpatient (CLI) | payer OTHER, SELFPAY ==
--- NOTE | ~2024-02-08 | NM_ITS ---
EXAMINATION: NM graham stress w perfusion DATE: 02/08/2024 11:11 INDICATION: Chest pain TECHNIQUE: Rest images were obtained following intravenous administration of 9.0 mCi Tc99m tetrofosmi n (Myoview). The patient was infused intravenously with Lexiscan (Regadenoson). Then, 29.0 mCi Tc99m tetrofosmin (Myoview) was administered intravenously, and stress images were obtained. Data was recon structed into short axis and horizontal and vertical long axis SPECT images. Gated SPECT images were also obtained. COMPARISON: None. FINDINGS: There is no definite reversible or fixed perfusion abnormality to suggest ischemia or infar ction. There is normal left ventricular chamber size, wall motion and ejection fraction. Left ventr icular ejection fraction measures 66%. IMPRESSION: 1. Normal myocardial perfusion at rest and during stress. 2. Left ventricular ejection fraction measuring 66%. Reviewed, dictated and finalized at location B.
--- NOTE | 2024-02-08 09:37 | EST_ITS ---
Patient Info Name: Nicolas Covington Age: 69 years : 1955 Gender: Male Ht: 65 in Wt: 145 lbs BSA: 1.75 m2 Exam Date: 02/08/2024 10:10 AM Exam Location: [facility] Patient Status: Outpatient Admit Date: 02/08/2024 Staff Ordering Physician: Valerio Jane DO Attending Provider: Valerio Jane DO Exercise Technologist: Adelaida Hills RDCS Exercise Physician: Valerio Jane DO Exam Type: CA stress graham w NM Study Info Indications R07.9 - Chest pain, unspecified A regadenoson stress test was performed. Summary 1. 1. Negative lexiscan stress test for ischemic ST changes by ECG criteria. 2. 2. Stable hemodynamics throughout the test. 3. 3. Nuclear scan to follow and will be reported separately. Please correlate with it. 4. 4. Patient informed of the above results. Protocol: Lexiscan Stress ECG Details Stage: REST Duration (min): 0 min : 57 sec HR (bpm): 71 SBP (mmHg): 139 DBP (mmHg): 85 Stage: REST Duration (min): 10 min : 54 sec HR (bpm): 84 SBP (mmHg): 139 DBP (mmHg): 85 Stage: STAGE 1 Duration (min): 0 min : 59 sec HR (bpm): 99 SBP (mmHg): 149 DBP (mmHg): 76 Stage: RECOVERY Duration (min): 1 min : 0 sec HR (bpm): 92 SBP (mmHg): 149 DBP (mmHg): 75 Stage: RECOVERY Duration (min): 2 min : 0 sec HR (bpm): 90 SBP (mmHg): 149 DBP (mmHg): 75 Stage: RECOVERY Duration (min): 3 min : 0 sec HR (bpm): 92 SBP (mmHg): 144 DBP (mmHg): 77 Stage: RECOVERY Duration (min): 3 min : 5 sec HR (bpm): 91 SBP (mmHg): 144 DBP (mmHg): 77 Rest HR: 84 bpm Peak HR: 99 bpm Rest Sys BP: 139 mmHg Peak Sys BP: 149 mmHg Max Pred HR: 149 bpm % Max Pred HR: 66 % Target HR: 127 bpm Max RPP: 14,751 bpm*mmHg Termination Reason: Completed protocol Cardiac Symptoms: Shortness of breath Total Time: 1 min : 0 sec Rest Mc BP: 85 mmHg Peak Mc BP: 76 mmHg Total Dose: 0.4 mg Resting ECG Sinus rhythm. Stress ECG No ST changes. Arrhythmias None. Report Signatures
== END 2024-02-08 09:21 | disposition home or self-care (01) ==
PROVIDERS: PCP Family Medicine; Visit Provider Internal Medicine Cardiovascular Disease
DX: R07.9 Chest pain, unspecified (principal)
CPT/HCPCS: 78452; 93017; A9502; J2785

== ENCOUNTER 2024-07-25 16:41 | Outpatient (CLI) | payer OTHER, SELFPAY | END 2024-07-25 16:42 | disposition home or self-care (01) | LOC: MICIMG 16:42 | PROVIDERS: PCP Family Medicine; Visit Provider Family Medicine | DX: M17.12 Unilateral primary osteoarthritis, left knee (principal) | CPT/HCPCS: 73560 ==

== ENCOUNTER 2025-05-14 04:01 | Emergency (ER) | payer OTHER, SELFPAY ==
--- NOTE | ~2025-05-14 | XR_ITS ---
Examination: XR chest 1V portable Clinical History: cough Comparison: 01/01/2024 Technique: Portable AP Findings: Heart size normal. Lungs clear. No acute bony abnormality. IMPRESSION: 1. No acute cardiopulmonary findings given portable technique. Reviewed, dictated and finalized at location [employer]
[2025-05-14 04:07] VITALS: BP 154/92; PULSE 88; RESP 17; TEMP 38.8; O2SAT 95
[2025-05-14 04:15] VITALS: BP 148/77; PULSE 88; RESP 22; O2SAT 95
--- NOTE | 2025-05-14 04:24 | ED_ITS ---
HPI - Fever General Chief Complaint: Fever Stated Complaint: Headache x3 days, fever Time Seen by Provider: 05/14/25 04:12 History of Present Illness HPI Narrative: 70-year-old male with history of hypertension hyperlipidemia and coronary disease presenting to the emergency department with 3 days of a headache. He states he has had a headache like a band across his forehead associated with a fever, sore throat, productive mucus cough. Denies any traumatic injuries. He is ambulatory with a steady gait not complaining anything like confusion, loss of consciousness, nausea, vomiting. No diarrhea, constipation, chest pain or difficulty in breathing. Was otherwise in his normal state of health. No sick contacts. He states he looked online and was told to come into the hospital feels a fever at his age. No recent health concerns otherwise. Related Data Home Medications ?Medication ?Instructions ?Recorded ?Confirmed ?Last Taken ?Type aspirin 325 mg tablet,delayed 325 mg PO DAILY 06/11/19 02/13/25 08/01/21 History release (Aspir-Binta) folic acid 400 mcg tablet 0.4 mg PO DAILY 08/09/23 Unknown History methotrexate sodium 2.5 mg tablet 20 mg PO WEEKLY 05/3102/13/25 Unknown History Allergies Allergy/AdvReac Type Severity Reaction Status Date / Time Sulfa (Sulfonamide Allergy Unknown hives Verified 02/13/25 08:56 Antibiotics) Review of Systems 2 Review of Systems: As reviewed above in HPI All systems reviewed & are unremarkable except as noted in HPI and below PMFSH Past Medical History Medical History Tobacco abuse Osteoarthritis HTN (hypertension) BPH (benign prostatic hyperplasia) Elevated PSA Surgical History Surgical History History of heart bypass surgery [place] [facility]: 5 vessel 2018 Family History Family History Sibling Hypertension Social History Social History Social History: Caffeine-occasional Smoking status: Never smoker Second hand tobacco smoke exposure: No Alcohol intake: current Drinks per week: 7 Substance use: never Substance use type: does not use Lack of Transportation: No Lack of Food: Never True Current Housing: I Have Housing Concerned About Future Housing: No Difficulty Paying Gas/Electric Bills: No Difficulty Paying for Meds: No Currently Unemployed: No Education: Associate Degree Difficulty w/ Childcare or Family Care: No Living arrangements: alone Occupation/Education: retired Gender identity (if verbalized by the patient): Male Spiritual care concerns: No Exam 2 Narrative: GENERAL: [Well-appearing, well-nourished, and in no acute distress.] HEAD: [Normocephalic, atraumatic.] EYES: [PERRLA and EOMI.] ENT: Nares clear, no rhinorrhea or epistaxis. Mucous membranes moist. NECK: Supple. CHEST: [Clear to auscultation. No respiratory distress.] HEART: [Regular rate and rhythm]. No murmur heard. [Normal peripheral pulses.] ABDOMEN: [Soft, nondistended], [nontender], [No rigidity or guarding] EXTREMITIES: Normal range of motion. [No edema.] SKIN: Warm, dry, no rash. NEURO: [No focal deficits]. Alert and oriented [x3.] PSYCH: [Normal mood and affect.] Course Vital Signs Vital signs: Vital Signs Temperature 38.8 C H 05/14/25 04:07 Pulse Rate 88 05/14/25 04:07 Respiratory Rate 17 05/14/25 04:07 Blood Pressure 154/92 H 05/14/25 04:07 Pulse Oximetry 95 05/14/25 04:07 Temperature 38.9 C H 05/14/25 05:08 Pulse Rate 90 05/14/25 05:08 Respiratory Rate 20 05/14/25 05:08 Blood Pressure 132/72 05/14/25 05:08 Pulse Oximetry 95 05/14/25 05:08 [facility] MDM Narrative Medical decision making narrative: 70-year-old male with history of hypertension hyperlipidemia and coronary disease presenting to the emergency department with 3 days of a headache. He states he has had a headache like a band across his forehead associated with a fever, sore throat, productive mucus cough. Denies any traumatic injuries. He is ambulatory with a steady gait not complaining anything like confusion, loss of consciousness, nausea, vomiting. No diarrhea, constipation, chest pain or difficulty in breathing. Was otherwise in his normal state of health. No sick contacts. He states he looked online and was told to come into the hospital feels a fever at his age. No recent health concerns otherwise. Patient is very well-appearing and not in any distress. He has clear breath sounds throughout. No cough throughout the examination. Moist mucous membranes. Answering all questions appropriately. No neurological deficits or complaints. Acting appropriately. Suspect his headache is secondary to his fever and likely viral in nature. Low suspicion pneumonia or bacterial infection but will obtain x-ray basic laboratory studies and viral panel swabs. Patient was given a Tylenol for his fever and headache and re-evaluated. X-ray does not appear to have any large consolidations. He tested positive for influenza A. His laboratory studies showed no leukocytosis or anemia. Laboratory studies showed normal kidney function and electrolyte panel. Normal glucose. Discussed findings with the patient including treatment options including anti-inflammatories or also ultimately or combination of both. Patient like to proceed with Tamiflu initiation a given his normal renal function was given 75 mg dose presently and prescription for 5 days of b.i.d. dosing. Anti-inflammatory sent to his pharmacy and he was safe for discharge with return precautions. Patient verbalized expressing understanding the instructions and will follow up with his regular doctors. Differential Diagnosis Differential Diagnosis: Suspect his headache is secondary to his fever and likely viral in nature. Low suspicion pneumonia or bacterial infection Lab Data MDM Lab Attestation statement: I personally reviewed the patient's lab results. 05/14/25 04:21 05/14/25 04:21 Labs: Lab Results 05/14/25 Range/Units 04:21 WBC 5.8 (4.5-10.0) K/mm3 RBC 3.92 L (4.6-6.20) M/mm3 Hgb 13.1 L (14.0-18.0) g/dL Hct 39.2 L (42.0-52.0) % MCV 100.0 (80-100) fl MCH 33.4 (26-34) pg MCHC 33.4 (32-36) g/dl RDW 15.0 H (11.5-14.5) % Plt Count 126 L (150-375) k/mm3 MPV 11.6 H (7.4-10.4) fl Immature Gran % (Auto) 0.2 (0-0.5) % Neut % (Auto) 86.0 H (45.5-73.1) % Lymph % (Auto) 4.3 L (18.3-44.2) % [place] % (Auto) 8.3 (2.6-8.5) % Eos % (Auto) 0.7 (0-4.4) % Baso % (Auto) 0.5 (0.2-1.2) % Lymph # (Auto) 0.25 L (0.9-3.2) K/mm3 [place] # (Auto) 0.5 (0.1-0.6) K/mm3 Eos # (Auto) 0.0 (0-0.3) K/mm3 Baso # (Auto) 0.0 (0.0-0.1) K/mm3 Abs Immat Gran (auto) 0.01 (0.00-0.031) K/mm3 Absolute Neuts (auto) 5.0 (1.3-6.7) K/mm3 Absolute Nucleated RBC 0.000 (0.0-0.012) K/mm3 Nucleated RBC % 0.0 (0.0-0.2) % % Immature Plt Fraction 4.4 (0.9-11.2) % Sodium 137 (137-145) mmol/L Potassium 4.6 (3.4-5.0) mmol/L Chloride 106 (98-107) mmol/L Carbon Dioxide 26 (22-30) mmol/L Anion Gap 5 (4-12) mmol/L BUN 14 D (9-20) mg/dL Creatinine 0.90 (0.7-1.3) mg/dL Estim Creat Clear Calc 55 ml/min Estimated GFR > 60 (59 - ) Glucose 116 H (65-110) mg/dL Calcium 8.5 (8.4-10.2) mg/dL Total Bilirubin 0.6 (0.2-1.3) mg/dL AST 38 (17-59) U/L ALT 33 (6-50) U/L Alkaline Phosphatase 98 (38-126) U/L Total Protein 7.2 (6.3-8.2) g/dL Albumin 4.2 (3.5-5.1) g/dL Influenza A (RT-PCR) Positive A (Negative) Influenza B (RT-PCR) Negative (Negative) RSV (RT-PCR) Negative (Negative) SARS-CoV-2 RNA (RT-PCR) Negative (Negative) Imaging Data Attestation: I personally reviewed and interpreted this imaging study as follows: My impression: No overt large consolidations or any pneumothorax. Sternotomy wires. Discharge Plan Discharge Clinical Impression: Influenza A Patient Disposition: Home Condition: Stable Instructions: Antibiotic Form, Influenza (ED) Additional Instructions: Tested positive for influenza. No signs of pneumonia or any organ damage. Laboratory studies are reassuring. We have started you on Tamiflu medication to take twice a day for the next 5 days. We have also prescribed appropriate anti- inflammatory medications to take every 6-8 hours for fever and pain control. You can also take any [id number] supplements for symptom control of cold and flu. Return with any emergent concerns or worsening symptoms otherwise please follow-up with regular primary care providers. Continue taking your other medications at home as prescribed. Patient Language: Hungarian Prescriptions: New oseltamivir [Tamiflu] 75 mg capsule 75 mg PO Q12H 5 Days Qty: 10 0RF acetaminophen [Tylenol Extra Strength] 500 mg tablet 1,000 mg PO TID PRN (Reason: pain) Qty: 30 0RF ibuprofen 600 mg tablet 600 mg PO TID PRN (Reason: pain) Qty: 30 0RF ondansetron 4 mg tablet,disintegrating 4 mg PO Q8H PRN (Reason: nausea and vomiting) Qty: 10 0RF No Action folic acid 400 mcg tablet 0.4 mg PO DAILY nitroglycerin 0.4 mg tablet, sublingual 0.4 mg sublingual Q5M PRN (Reason: chest pain) Qty: 30 0RF Rx Instructions: do not exceed 3 doses per episode methotrexate sodium 2.5 mg tablet 20 mg PO WEEKLY Rx Instructions: pt taking 8 tablets once weekly aspirin [Aspir-Binta] 325 mg tablet,delayed release (DR/EC) 325 mg PO DAILY atorvastatin 20 mg tablet See Rx Instructions .ROUTE .COMPLEX Qty: 90 2RF Dose Instruction: TAKE 1 TABLET BY MOUTH ONCE A DAY Rx Instructions: TAKE 1 TABLET BY MOUTH ONCE A DAY tamsulosin 0.4 mg capsule 0.4 mg PO .every other day Qty: 45 3RF lisinopril 10 mg tablet 10 mg PO DAILY Qty: 90 1RF Follow-up/Referrals: Marshall Marcum MD [Primary Care Provider, Family Practice] Time of Disposition: 05:17
[2025-05-14] MEDS: ACETAMINOPHEN 500 MG TABLET 1000 MG PO (04:27)
[2025-05-14 04:30] LABS: Hematocrit 39.2 % (42.0-52.0); Hemoglobin 13.1 g/dL (14.0-18.0); Immature Granulocyte Percent A 0.2 % (0-0.5); Immature Platelet Fraction Pct 4.4 % (0.9-11.2); Lymphocytes Absolute Auto 0.25 K/mm3 (0.9-3.2); Mean Corpuscular HGB Conc 33.4 g/dl (32-36); Mean Corpuscular Hemoglobin 33.4 pg (26-34); Mean Corpuscular Volume 100.0 fl (80-100); Nucleated Red Blood Cells Absolute Auto 0.000 K/mm3 (0.0-0.012); Nucleated Red Blood Cells Perc 0.0 % (0.0-0.2); Platelet Count Result 126 k/mm3 (150-375); Red Blood Count 3.92 M/mm3 (4.6-6.20); White Blood Count 5.8 K/mm3 (4.5-10.0)
[2025-05-14 04:34] VITALS: O2SAT 96
[2025-05-14 04:44] LABS: Alanine Aminotransferase 33 U/L (6-50); Albumin Level 4.2 g/dL (3.5-5.1); Alkaline Phosphatase 98 U/L (38-126); Anion Gap 5 mmol/L (4-12); Aspartate Amino Transferase 38 U/L (17-59); Bilirubin,Total 0.6 mg/dL (0.2-1.3); Blood Urea Nitrogen 14 mg/dL (9-20); Calcium 8.5 mg/dL (8.4-10.2); Carbon Dioxide 26 mmol/L (22-30); Chloride 106 mmol/L (98-107); Estimated CRCL calculation 55 ml/min; Estimated Glomerular Filt Rate > 60; Glucose 116 mg/dL (65-110); Potassium 4.6 mmol/L (3.4-5.0); Sodium 137 mmol/L (137-145); Total Protein 7.2 g/dL (6.3-8.2)
[2025-05-14 05:06] LABS: Influenza A QL RT-PCR Positive (Negative); Influenza B QL RT-PCR Negative (Negative); RSV RNA, RT-PCR Negative (Negative); SARS-CoV-2 RNA PCR Negative (Negative)
[2025-05-14 05:08] VITALS: BP 132/72; PULSE 90; RESP 20; TEMP 38.9; O2SAT 95
[2025-05-14] MEDS: OSELTAMIVIR PHOSPHATE 75 MG CAPSULE PO (05:16)
== END 2025-05-14 05:22 | disposition home or self-care (01) ==
PROVIDERS: Emergency Provider Student in an Organized Health Care Education/Training Program; PCP Family Medicine
DX: J10.1 Influenza due to other identified influenza virus with other respiratory manifestations (principal); Z20.822 Contact with and (suspected) exposure to COVID-19; I10 Essential (primary) hypertension; I25.10 Atherosclerotic heart disease of native coronary artery without angina pectoris; E78.5 Hyperlipidemia, unspecified; N40.0 Benign prostatic hyperplasia without lower urinary tract symptoms; M19.90 Unspecified osteoarthritis, unspecified site; Z95.1 Presence of aortocoronary bypass graft; Z79.82 Long term (current) use of aspirin; Z79.899 Other long term (current) drug therapy
CPT/HCPCS: 36415; 71045; 80053; 85025; 85055; 87637; 99283; A9270